=== PATIENT | male | born 1980 | race Caucasian/White ===

== ENCOUNTER 2021-12-05 08:27 | Day surgery (SDC) | payer MEDICAID ==
[~2021-12-05] VITALS: Ht 177.8 cm; Wt 118.4 kg
[2021-12-05] MEDS ORDERED: DIPHENHYDRAMINE INJ 50 MG/ML VIAL ONE (09:19)
[2021-12-05] MEDS: fentaNYL CITRATE/PF 100 MCG/2 ML AMP ONE ×2 (09:29→09:31)
[2021-12-05] MEDS: MIDAZOLAM HCL 5 MG/5 ML VIAL ONE ×2 (09:29→09:31)
[2021-12-05 11:50] VITALS: BP_SYST 119
== END 2021-12-05 10:29 | disposition home or self-care (01) ==
LOC: SDS 08:27 → SMU 10:28 → SDS 10:29
PROVIDERS: ATTEND Internal Medicine
DX: Z12.11 Encounter for screening for malignant neoplasm of colon (principal); D12.2 Benign neoplasm of ascending colon; K64.8 Other hemorrhoids; Z20.822 Contact with and (suspected) exposure to COVID-19; Z79.899 Other long term (current) drug therapy
CPT/HCPCS: 36415 ×2; 45385; 87426; 87635; 88305; 99152; G0378; J1200; J2250; J3010; U0003; 45384